=== PATIENT | male | born 1960 | race Caucasian/White ===

== ENCOUNTER 2016-07-09 05:55 | Emergency (ER) | payer OTHER ==
[2016-07-09] MEDS ORDERED: ONDANSETRON ODT 4 MG TAB.RAPDIS ONE (06:26)
--- NOTE | 2016-07-09 06:59 | ER PHYSICIAN DOCUMENTATION ---
Physician Documentation [facility] Name:Mora Hanna Age:55 yrs Sex:Male :1960 Arrival Date:07/09/2016 Time:05:55 Bed4 Private MD:Physician, No ED Clyde Barahona Disposition: 07/09/16 06:50 Discharged to Home/Self Care. Impression: Influenza. - Condition is Good. - Discharge Instructions: INFLUENZA (Adult). - Prescriptions for Tamiflu 75 mg Oral Capsule - take 1 capsule by ORAL route every 12 hours for 5 days; 10 capsule. Zofran 4 mg Oral - take 1 tablet by ORAL route every 6 hours; 6 tablet. - Medical Reconciliation form form. - Follow up: Private Physician; When: 7 - 10 days; Reason: Recheck today's complaints, Continuance of care. - Problem is new. - Symptoms are unchanged. - Notes: Drink plenty of fluids, rest, No work for 4 days.... Take Tamiflu 75mg by mouth every 12 hours for 5 days... Take Tylenol 650mg by mouth every 6 hours for 2 - 3 days Take Ibuprofen 600mg by mouth every 6 hours for 2 - 3 days HPI: 07/09 06:20 This 55 yrs old Male presents to ER via Walk In with complaints of Flu-like cd symptoms. 06:20 The patient reports fever, not measured (subjective). Onset: The symptom(s)/episode cd began/occurred acutely, 3 day(s) ago. Associated signs and symptoms: Pertinent positives: cough, that is dry, headache, nausea, sinus congestion, sore throat. Severity of symptoms: At their worst the symptoms were moderate in the emergency department the symptoms are unchanged. Historical: - Allergies: No known drug Allergies; - Home Meds: 1. None 2. None - PSHx: None; - Tetanus: > 10 years. - Ebola Screening: : Patient negative for fever greater than or equal to 101.5 degrees Fahrenheit, and additional compatible Ebola Virus Disease symptoms. - Immunization history: Flu Vaccine None. - Social history: Smoking status: Patient uses tobacco products, current every day smoker. ROS: 06:15 Constitutional: Positive for body aches, fever, poor PO intake. cd 06:15 ENT: Positive for sinus congestion, sore throat, Negative for ear pain, sinus pain. 06:15 Respiratory: Positive for cough, Negative for pleurisy, shortness of breath, wheezing. 06:15 Abdomen/GI: Positive for nausea, Negative for abdominal pain, vomiting. 06:15 All other systems are negative. Exam: 06:15 Head/Face: Normocephalic, atraumatic. cd Eyes: Pupils equal round and reactive to light, extra-ocular motions intact. Lids and lashes normal. Conjunctiva and sclera are non-icteric and not injected. Cornea within normal limits. Periorbital areas with no swelling, redness, or edema. ENT: Nares patent. No nasal discharge, no septal abnormalities noted. Tympanic membranes are normal and external auditory canals are clear. Oropharynx with no redness, swelling, or masses, exudates, or evidence of obstruction, uvula midline. Mucous membranes moist. Neck: Trachea midline, no thyromegaly or masses palpated, and no cervical lymphadenopathy. Supple, full range of motion without nuchal rigidity, or vertebral point tenderness. No Meningismus. Cardiovascular: Regular rate and rhythm with a normal S1 and S2. No gallops, murmurs, or rubs. Normal PMI, no JVD. No pulse deficits. Respiratory: Lungs have equal breath sounds bilaterally, clear to auscultation and percussion. No rales, rhonchi or wheezes noted. No increased work of breathing, no retractions or nasal flaring. 06:15 Abdomen/GI: Soft, non-tender, with normal bowel sounds. No distension or tympany. No cd guarding or rebound. No evidence of tenderness throughout. 06:15 Constitutional: The patient appears alert, awake, non-diaphoretic, non-toxic, well developed, well nourished. Vital Signs: 06:03 BP 121 / 99; Pulse 113; Resp 16; Temp 98.4; Pulse Ox 95% on R/A; Weight 65.77 kg; em1 Height 5 ft. 10 in. (177.80 cm); Pain 1/; 06:03 Body Mass Index 20.81 (65.77 kg, 177.80 cm) em1 MDM: 06:47 Patient medically screened. cd 06:47 Data reviewed: vital signs, nurses notes, old medical records, and as a result, I will cd discharge patient, administer antibiotics Tamiflu. Data interpreted: Pulse oximetry: on room air is 95 %. Interpretation: normal. Counseling: I had a detailed discussion with the patient and/or guardian regarding: the historical points, exam findings, and any diagnostic results supporting the discharge/admit diagnosis, lab results, the need for outpatient follow up, for a recheck, with the patient's primary care provider, to return to the emergency department if symptoms worsen or persist or if there are any questions or concerns that arise at home. 07/09 06:28 Order name: INFLUENZA A/B; Complete Time: 10:27 EDWA 07/09 10:27 Interpretation: Abnormal: INFLUENZA A/B INF A POS, B NEG. cd Dispensed Medications: 06:17 Drug: Zofran 4 mg; Route: PO; rh 06:28 Follow up: Response: Nausea is decreased rh Signatures: Clyde Garcia MD MD cd Lynda Goins rh
--- NOTE | 2016-07-09 06:59 | ER NURSING DOCUMENTATION ---
Nurse's Notes [facility] Name:Mora Hanna Age:55 yrs Sex:Male :1960 Arrival Date:07/09/2016 Time:05:55 Bed4 Private MD:Physician, No Diagnosis:Influenza Presentation: 07/09 05:58 Acuity: REGGIE 3 rh 06:12 Presenting complaint: Patient states: 3 days patient has had LINDQUIST, nausea, fever, body rh aches and sinus congestion. Transition of care: Home. 06:12 Method Of Arrival: Walk In Triage Assessment: 06:13 Pertinent positives: cough, sinus congestion. General: Appears in no apparent distress, rh Behavior is cooperative. Pain: Complains of pain in GENERALIZED. EENT: Oral mucosa is moist. Neuro: Level of Consciousness is awake, alert, obeys commands, Oriented to person, place, time, event. Cardiovascular: Capillary refill < 3 seconds. Respiratory: Airway is patent Respiratory effort is even, unlabored, Breath sounds are clear bilaterally. GI: Abdomen is non- distended Abd is soft and non tender Reports nausea. : No deficits noted. Derm: Skin is intact, is healthy with good turgor, Skin is pink, warm & dry. Historical: - Allergies: No known drug Allergies; - Home Meds: 1. None 2. None - PSHx: None; - Tetanus: > 10 years. - Ebola Screening: : Patient negative for fever greater than or equal to 101.5 degrees Fahrenheit, and additional compatible Ebola Virus Disease symptoms. - Immunization history: Flu Vaccine None. - Social history: Smoking status: Patient uses tobacco products, current every day smoker. Screenin:14 Infectious Disease Risk None. Abuse screen: Denies threats or abuse. Denies injuries rh from another. Nutritional screening: No deficits noted. Assessment: 06:14 See Triage Assessment done by same RN. Vital Signs: 06:03 BP 121 / 99; Pulse 113; Resp 16; Temp 98.4; Pulse Ox 95% on R/A; Weight 65.77 kg; em1 Height 5 ft. 10 in. (177.80 cm); Pain 1/10; 06:03 Body Mass Index 20.81 (65.77 kg, 177.80 cm) em1 ED Course: 05:56 Patient arrived in ED. em2 05:56 Physician, No is Private Physician. em2 05:58 Lynda Goins is Primary Nurse. rh 05:58 Triage completed. rh 06:14 Notified ED Physician of patient's arrival and chief complaint. Dr. Garcia notified. rh 06:14 Valuables Remains with patient Patient has correct armband on for positive rh identification. Bed in low position. Call light in reach. Side rails up X 1. 06:47 Clyde Garcia MD is Attending Physician. cd Administered Medications: 06:17 Drug: Zofran 4 mg; Route: PO; rh 06:28 Follow up: Response: Nausea is decreased rh Outcome: 06:50 Discharge ordered by MD. cd 06:58 Discharged to home ambulatory, with family. rh 06:58 Condition: stable 06:58 Discharge Assessment: Patient awake, alert and oriented x 3. No cognitive and/or functional deficits noted. Patient verbalized understanding of disposition instructions. 06:58 Discharge instructions given to patient, family, Instructed on discharge instructions, follow up and referral plans. medication usage, Demonstrated understanding of instructions, medications, Prescriptions given X 3. 06:59 Patient left the ED. Signatures: Clyde Garcia MD MD cd [employer]inking-[employer], Kelly-tech em1 Meinking-reg, Kelly-reg em2 Lynda Goins
== END 2016-07-09 06:59 | disposition home or self-care (01) ==
LOC: ER 05:55
DX: J11.1 Influenza due to unidentified influenza virus with other respiratory manifestations (principal)
CPT/HCPCS: 87449; 99283